=== PATIENT | female | born 1960 | race Caucasian/White ===

== ENCOUNTER → 2017-09-26 | Outpatient (CLI) | payer OTHER | LOC: BRMIMAGING 11:55 | PROVIDERS: ATTEND Internal Medicine | DX: M25.521 Pain in right elbow (principal) | CPT/HCPCS: 73080-PO ==

== ENCOUNTER → 2017-10-19 | Outpatient (CLI) | payer OTHER | LOC: BRMIMAGING 13:47 | PROVIDERS: ATTEND Internal Medicine | DX: M50.122 Cervical disc disorder at C5-C6 level with radiculopathy (principal) | CPT/HCPCS: 72052-PO ==